=== PATIENT | female | born 2005 | race Caucasian/White ===

== ENCOUNTER 2024-10-25 06:29 | Emergency (ER) | payer SELFPAY ==
[2024-10-25 06:31] VITALS: BP 146/96; PULSE 122; RESP 18; TEMP 36.8; O2SAT 100
--- NOTE | 2024-10-25 08:15 | PC.NURSE ---
Pt ambulated to intake desk and states I am just gonna go, I don't want to be seen. Pt exited ED in NAD, steady gait.
--- OUTSIDE RECORDS SUMMARY | 2024-10-25 08:21 | XMS_ITS | Clinical Summary ---
Author Organization [facility] Administrative Offices Address [address] [place] [address] Care Team Providers Care Collection Administrator Name Role Phone Unavailable Primary Care Provider Unavailabl e Allergies No known active allergies Medications norethindrn a-e estradiol-iron (Loestrin Fe 08/10, 28-Day,) 1 mg-20 mcg (21)/75 mg (7) tablet Take 1 Tablet by mouth daily. 84 Tablet 3 11/23/2022 Active Active Problems No known active problems Family History Medical History Relation Name Comments Diabetes Father Heart Disease Father Diabetes Paternal Grandfather Relation Name Status Comments Father Paternal Grandfather Social History Tobacco Use Types Packs/Day Years Used Date Smoking Tobacco: Never Smokeless Tobacco: Never Tobacco Cessation:Counseling Given: Not Answered Alcohol Use Standard Drinks/Week Comments Yes 0 (1 standard drink = 0.6 oz pur e alcohol) Adolescent Education Answer Date Record ed Getting School Help Needed Not on file 02/20 Comments Unknown Sex and Gender Information Value Date Recorded Sex Assigned at Not on file 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 Gender Identity Not on file Sexual Orientation Not on file Last Filed Vital Signs Vital Sign Reading Time Taken Comments Blood Pressure 112/72 02/25/2023 10:29 AM CDT Pulse - - Temperature - - Respiratory Rate - - Oxygen Saturation - - Inhaled Oxygen Concentration - - Weight 101.6 kg (224 lb) 02/25/2023 10:29 AM CDT Height 170.2 cm (5' 7 ) 11/19/2022 2:42 PM CDT Body Mass Index 35.08 11/19/2022 2:42 PM CDT Plan of Treatment Health Maintenance Due Date Last Done Comments CHLAMYDIA SCREENING (ANNUAL) 11-24 YEARS 01/09/2015 HPV VACCINES (1 - 3-dose series) 01/09/2019 DTAP/TDAP/TD VACCINES (1 - Tdap) 01/09/2023 HEPATITIS B VACCINES (1 of 3 - 19+ 3-dose series) 12/21 INFLUENZA VACCINE (#1) 2024 Insurance [facility] OPEN ACCESS HMO
--- OUTSIDE RECORDS SUMMARY | 2024-10-25 08:21 | XMS_ITS | Encounter Summary ---
Author Organization [facility] Address [address] 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
--- OUTSIDE RECORDS SUMMARY | 2024-10-25 08:21 | XMS_ITS | Encounter Summary ---
Author Organization [employer] Address [address] [place] [address] Care Team Providers Care Dining Service Supervisor Name Role Phone Juju Ramachandran MD Primary Care Provider Encounter Details Date Type Department Care Team (Late st Contact Info) Description 08/11/2007 Outpatient Historical 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
--- OUTSIDE RECORDS SUMMARY | 2024-10-25 08:21 | XMS_ITS | Continuity of Care Document ---
Author Organization [employer] Address [address] [place] [address] Phone Care Team Providers Care Customer Services Manager Name Role Phone Clifford Florez MD Unavailable Unavailable Allergies, Adverse Reactions, Alerts Substance Reaction Status Criticality No Known Allergies Active No Inform ation Medications Medication Instructions Dosage Effective Dates (start - stop) Status Comments clotrimazole 1 % topical cream apply by topical route 2 times every day to the affected and surrounding areas of skin in the morning and evening 0.00 - Active Procedures Procedure Date IMMUN ADMIN (INC PERCUTANEOUS) SINGLE, F IRST INJ HEPATITIS B VACCINE, ADULT DOSEAGE, 3 DO SE SCHEDULE FOR INTRAMUSCULAR USE IMMUN ADMIN (INC PERCUTANEOUS) SINGLE, F IRST INJ HEPATITIS B VACCINE, ADULT DOSEAGE, 3 DO SE SCHEDULE FOR INTRAMUSCULAR USE IMMUN ADMIN (INC PERCUTANEOUS) EACH ADDT L HPV IM Types 6, 11, 16, 18, 31, 33, 45, 58 NONVALENT 9vHPV 3 DOSE SCHED IMMUN ADMIN (INC PERCUTANEOUS) SINGLE, F IRST INJ HEPATITIS B VACCINE, ADULT DOSEAGE, 3 DO SE SCHEDULE FOR INTRAMUSCULAR USE Brief Emotional/Behavioral A ssessment, With Scoring/Doct, Per [facility] Instrument Clin depression screen doc Brief Emotional/Behavioral A ssessment, With Scoring/Doct, Per St[facility] Instrument OFFICE [id number] BODY MASS INDEX DOCD SYST BP LT 130 MM HG DIAST BP < 80 MM HG PREVENTATIVE-EST: 18-39 OFFICE [id number] BODY MASS INDEX DOCD SYST BP LT 130 MM HG DIAST BP < 80 MM HG IMMUN ADMIN (INC PERCUTANEOUS) SINGLE, F IRST INJ HPV IM Types 6, 11, 16, 18, 31, 33, 45, 58 NONVALENT 9vHPV 3 DOSE SCHED ROUTINE VENIPUNCTURE COMPREHEN METABOLIC PANEL CMP LIPID PANEL ROUTINE VENIPUNCTURE SYST BP LT 130 MM HG DIAST BP 80-89 MM HG OFFICE [id number] BODY MASS INDEX DOCD SYST BP LT 130 MM HG DIAST BP 80-89 MM HG Brief Emotional/Behavioral A ssessment, With Scoring/Doct, Per [facility] Clin depression screen doc Brief Emotional/Behavioral A ssessment, With Scoring/Doct, Per Stnd[facility] Instrument Advance Directives Directive Yes / No Effective Date File Name No Information Encounters Encounter Description Practice Location Reason(s) For Visit Diagnoses Date Provider Providers Copied on Encounter [facility] [employer], [address], [place], [place], [id number] , [place] tel:[phone] [facility] Medicine No Information Aug-0 5 Vikki Horton. [address] [place], [place], [id number] , [place]. tel:[phone] [facility] [employer], [address], [place], [place], [id number] , [place] tel: [phone] [facility] Medicine Need for hepatitis B screening test b-0 5 Vikki Sarabia [address] [place], [place], [id number] , [place]. tel: [phone] [facility], [address], [place], [place], [address] , [place] tel: [phone] [facility] No Information 5 Arnel Tay. [address] [place] [address], [id number] , [place]. tel: [phone] Referring Provider: Jasvir Nugent, [facility] [place], [address] . tel:[phone] [facility], [address], [place], [place], [address] , [place] tel: [phone] [facility] No Information 4 Jaziel Palacios. [address] [place] [address], [id number] , . tel:[phone] Referring Provider: Clifford Florez, [address] [place] [address], [address] . tel:[phone] [facility], [address], [place], [place], [address] , [place] tel: [phone] [facility] Immunity status testing 4 Vikki Horton. [address] [place] [address], [id number] , [place]. tel:[phone] OFFICE [id number] MITED [facility], [address], [place], [place], [address] , [place] tel: [phone] [facility] .rash (chief complaint) vaccines (chief complaint) Need for vaccinationRashBody mass index [BMI] 35.0-35.9, adult 4 Jaziel Palacios. [address] [place] [address], [id number] , . tel:[phone] Referring Provider: Clifford Florez, [address] [place] [address], [address] . tel:[phone] PREVENTATIVE -EST: 18-39 [facility], [address], [place], [place], [id number] , tel: [phone] [facility] .wellness (chief complaint) Body mass index [BMI] pediatric, greater than or equal to 95th percentile for ageWellness examinationImmunity status testingNeed for vaccination 4 Jaziel Palacios. [address] [place] [address], [id number] , . tel:[phone] Referring Provider: Clifford Florez, [address] [place] [address], [address] . tel:[phone] OFFICE [id number]-ES -MED [facility], [address], [place], [place], [address] , tel: [phone] [facility] acute problem (chief complaint) Encounter for screening for cardiovascular disordersDiabetes mellitus screeningEncounter for immunizationBody mass index [BMI] pediatric, greater than or equal to 95th percentile for ageAcute urticariaCurrent mild episode of major depressive disorder, unspecified whether recurrentAmenorrhea 3 Vikki Horton. [address] [place] [address], [id number] , . [phone] Referring Provider: Clifford Florez, [address] [place] [address], [address] . tel:[phone] [facility], [address], [place], [place], [address] , tel: [phone] [facility] No Information 3 Vikki Horton. [address] [place] [address], [id number] , . tel:[phone] Family History Family Member Type Diagnosis Age At Onset No Information Immunizations Vaccine Date Status Comments Hep B, adult, 3 dose administered Source: New Immunization Record HPV (9-valent) refused Source: New I mmunization Record Hep B, adult, 3 dose administered Source: New Immunization Record HPV (9-valent) administered Source: New I mmunization Record Hep B, adult, 3 dose administered Source: New Immunization Record HPV (9-valent) administered Source: New I mmunization Record Payers Payer name Insurance type Covered libertarian ID Jenny washburn(s) [employer] OPEN ACCESS CI [id number] [employer] OPEN ACCESS CI [id number] [employer] OPEN ACCESS CI [id number] [employer] OPEN ACCESS CI [id number] [employer] OPEN ACCESS CI [id number] Social History Type Description Quantity Date Captured Comments Alcohol Use Details Unknown Caffeine Use Details Unknown Tobacco Use Status No Information Smoking Status No Information Sex Female Sexual Orientation Straight or heterosexual Gender Identity Female Chief Complaint And Reason For Visit No Information Reason For Referral Reason For Referral No Information Plan Of Treatment Date Type Action Status Goal Dietary management education , guidance, and counseling completed Goal Dietary management education , guidance, and counseling completed Goal Dietary management education , guidance, and counseling completed History Of Present Illness Encounter Date Complaint History Of Prese nt Illness .rash Pt here with con cerns of rash on R elbow for about 6 months. Started as small red bump and has since progressed to circular rash that is not itching, burning or painful. 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 no recent travel, new skin products. family members without symptoms. 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 Hep B titers were negative for immunity, needing Hep B series. She had first HPV vaccine about 1 mo ago. tolerated well without side effects. .wellness Pt presents for wellness exam. Plans to attend [employer] nursing program, needs verification of Hep B immunity. She feels well, denies any concerns. acute problem Appointment was made for cutting but patient states she is here for hives.Last started to get hives and thought it was due to stress because last year during graduation she had the same thing for 2 days and they went away with benadryl.This has been going on for a week now and not responding to the benadryl. No swelling of lips or tongue. No trouble swallowing, wheezing or shortness of breath. No new soaps, shampoos, detergents, fabric softeners, dryer sheets, etc...She states she had a one time history of cutting her breast a month ago. No pain or swelling. Saw a counselor once a few years ago but was a friend of grandmother and didn't feel comfortable. Has never been on medication. Decreased motivation and fatigue at times but is also working while going to classes. Some sadness and anhedonia. No suicidal or homicidal ideationsAlso mentioned that she has not had her menses since January. Negative HCG. States that this has happened in the past when stressed out. She does have a history of ovarian cyst. Functional Status Date Functional Assessmen t No Information Instructions Date Instruction Additional Infor chasidy Follow up for repeat hepatis vaccine in 4 months and final HPV vaccine at that time as well. Related to Need for vaccination Dietary management e ducation, guidance, and counseling Related to Body mass index (BMI) 35.0-35.9, adult You should return fo r 2nd HPV vaccine in 1-2 months then your last dose will be 6 months after that Related to Need for vaccination Dietary management e ducation, guidance, and counseling Related to Body mass index (BMI) pediatric, greater than or equal to 95th percentile for age Discussed the bioche mical nature and treatment options of depression at length including medical and non-medical options. Discussed exercise and counseling.. She is going to try counseling. She is on the fence about medication but leaning towards it. Given a provisional RX for paroxetine 10 mg qd and is going to think a bit more about starting therapy. Related to Current mild episode of major depressive disorder, unspecified whether recurrent check TSH, FSH and L HShe states she had this once before when stressed out but also possible PCOs (history of ovarian cyst, obesity and amenorrhea). May be a candidate for trial of metformin Related to Amenorrhea discussed keeping sk in cool.Zyrtec 10 mg bidPepcid 20 mg qdProvisional RX for prednisone 50 mg qd x 5 Related to Acute urticaria Screen for diabetes. Check CMP R elated to Diabetes mellitus screening Screen for cardiovas cular/lipid disorder. Check lipid profile. Related to Encounter for screening for cardiovascular disorders need copy of shot records Relate d to Encounter for immunization Disease process Dietary management e ducation, guidance, and counseling Related to Body mass index (BMI) pediatric, greater than or equal to 95th percentile for age Assessments Type Assessment Date No Information Patient Care Teams Name Effective Dates (start - stop) Status Members No Information
--- OUTSIDE RECORDS SUMMARY | 2024-10-25 08:21 | XMS_ITS | Encounter Summary ---
Author Organization [facility] Address [address] [place] [address] Care Team Providers Care Diesel Powerplant Supervisor Name Role Phone Juju Ramachandran MD Primary Care Provider [phone] Encounter Details Date Type Department Care Team (Late st Contact Info) Description 2004 Outpatient Historical [facility] Hearing [facility] 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
== END 2024-10-25 09:33 | disposition left against medical advice (07) ==
LOC: ANHED 08:20
DX: H92.03 Otalgia, bilateral (principal)
CPT/HCPCS: 99199

== ENCOUNTER 2024-10-25 08:14 | Emergency (ER) | payer OTHER, SELFPAY ==
[2024-10-25 08:28] VITALS: BP 127/83; PULSE 108; RESP 16; TEMP 36.6; O2SAT 100
--- NOTE | 2024-10-25 08:32 | ED_ITS ---
HPI - Ear Problem General Chief complaint: Ear Stated complaint: EARACHE Time Seen by Provider: 10/25/24 08:32 Source: patient Mode of arrival: ambulatory Limitations: no limitations History of Present Illness HPI Narrative: 19 yo F presents with c/o bilateral ear pain for 2 days. Has had nasal congestion, sinus pressure for about 1 wk. Taking OTC sudafed with no relief. All systems reviewed and negative except as noted above. Related Data Allergies Allergy/AdvReac Type Severity Reaction Status Date / Time No Known Allergies Allergy Verified 10/25/24 08:27 Review of Systems Review of Systems: CONSTITUTIONAL: Denies fever, chills, or sweats. EYES: Denies visual changes, redness, or discharge. ENT: Reports rhinorrhea, congestion, sinus pressure. Denies sore throat. Reports bilateral ear pain CARDIOVASCULAR: Denies chest pain, palpitations, or edema. RESPIRATORY: Denies cough or dyspnea. GASTROINTESTINAL: Denies abdominal pain, nausea, vomiting, or diarrhea. GENITOURINARY: Denies dysuria or hematuria. SKIN: Denies rash or itching. MUSCULOSKELETAL: Denies back pain, joint pain, or myalgia. NEUROLOGIC: Denies headache, numbness, or weakness. PSYCHIATRIC: Denies anxiety or depression. All other systems reviewed are negative, except as documented in HPI. PMFSH Comments At time of signature, agree with nursing past medical, surgical, social and family history. There is no relevant family history pertinent to the presenting complaint. Exam Narrative: GENERAL: This is a well-nourished, well-developed patient, in no apparent distress. HEAD: normocephalic, atraumatic. EYES: PERRL. Sclera clear/white. Vision is grossly intact. EARS: External ears normal, auditory canals clear and without drainage, fluid bilateral TMs, dull light reflex, mild erythema. No perforation bilaterally. Hearing grossly intact. NOSE: External nose normal with clear nasal drainage THROAT: Mucous membranes moist, mild erythema with postnasal drainage NECK: Neck supple, non-tender without lymphadenopathy, masses or thyromegaly. CARDIOVASCULAR: Regular rate and rhythm without murmurs, gallops, or rubs. RESPIRATORY: Clear to auscultation. Breath sounds equal bilaterally. No wheezes, rales, or rhonchi. SKIN: warm, Dry, intact with no suspicious lesions or rash, good texture and t urgor. NEURO: awake, alert, and oriented to person, place and time. There were no obvious focal neurologic abnormalities. EXTREMITIES: No joint tenderness, effusion, or edema noted. Course Course Level of Care: Express Care Visit Vital Signs Vital signs: Vital Signs Temperature 36.6 C 10/25/24 08:28 Pulse Rate 108 H 10/25/24 08:28 Respiratory Rate 16 10/25/24 08:28 Blood Pressure 127/83 10/25/24 08:28 Pulse Oximetry 100 10/25/24 08:28 Temperature 36.6 C 10/25/24 08:28 Pulse Rate 108 H 10/25/24 08:28 Respiratory Rate 16 10/25/24 08:28 Blood Pressure 127/83 10/25/24 08:28 Pulse Oximetry 100 10/25/24 08:28 Reviewed Medical Decision Making MDM Narrative Medical decision making narrative: Will treat fluid bilateral TMs with antibiotic. Patient is well-appearing, nontoxic. Please be advised this is a medical document. It is intended for [id number] communication. It is written in medical language and may contain unfamiliar abbreviations or verbiage. Medical documents are intended to carry relevant information, facts as evident, and the clinical opinion of the practitioner at the time of the encounter. This report may have been done utilizing a voice recognition system. Attempts have been made to correct errors. However, there may be uncorrected grammatical, spelling, and recognition errors present. The file time of this note does not necessarily represent the time of service. Vital Signs Vital Signs: Vital Signs Temperature 36.6 C 10/25/24 08:28 Pulse Rate 108 H 10/25/24 08:28 Respiratory Rate 16 10/25/24 08:28 Blood Pressure 127/83 10/25/24 08:28 Pulse Oximetry 100 10/25/24 08:28 Temperature 36.6 C 10/25/24 08:28 Pulse Rate 108 H 10/25/24 08:28 Respiratory Rate 16 10/25/24 08:28 Blood Pressure 127/83 10/25/24 08:28 Pulse Oximetry 100 10/25/24 08:28 Discharge Plan Discharge Clinical Impression: Acute serous otitis media of both ears Qualifiers: Recurrence: not specified as recurrent Qualified Code(s): H65.03 - Acute serous otitis media, bilateral Patient Disposition: Home, Self-Care Condition: Stable Instructions: Antibiotic Form, Fluid In The Ear (Serous Otitis Media) (ED) Additional Instructions: Take medications as prescribed. Take ibuprofen or Tylenol every 6-8 hours as needed for pain. Follow-up with your primary care physician if symptoms are not improving. Patient Language: Bengali Prescriptions: New amoxicillin 875 mg tablet 875 mg PO Q12H 10 Days Qty: 20 0RF fluticasone propionate [Flonase Allergy Relief] 50 mcg/actuation spray,suspension 1 spray intranasal BID Qty: 16 0RF Rx Instructions: administer into each nostril Claritin-D 12 Hour 5-120 mg tablet extended release 12 hr 1 tablet PO Q12H PRN (Reason: sinus symptoms) Qty: 20 0RF Follow-up/Referrals: PHYSICIAN,CHILD PSYCHIATRIST [Primary Care Provider] - Stand Alone Forms: Work/School Release IP Time of Disposition: 08:40
== END 2024-10-25 08:49 | disposition home or self-care (01) ==
PROVIDERS: Emergency Provider Nurse Practitioner Family
DX: H65.03 Acute serous otitis media, bilateral (principal)
CPT/HCPCS: 99203; G0463

== ENCOUNTER 2025-03-06 11:54 | Emergency (ER) | payer OTHER, SELFPAY ==
[2025-03-06 12:14] VITALS: BP 135/84; PULSE 104; RESP 18; TEMP 36.8; O2SAT 100
--- NOTE | 2025-03-06 12:39 | ED_ITS ---
HPI - General Adult General Chief complaint: Unspecified Stated complaint: SORE THROAT Time Seen by Provider: 03/06/25 12:39 Source: patient Mode of arrival: ambulatory Limitations: no limitations History of Present Illness HPI narrative: 20 yo F presents with c/o nausea. has been nauseated since taking 40mg paxil. discussed this with her PCP who recently decreased paxil to 30mg. Continues to have nausea. Scheduled appt with Pcp for Saturday but needs to drive 2 hrs home today for appt. Called into work and needs noted. Denies SI/HI. All systems reviewed and negative except as noted above. Related Data Allergies Allergy/AdvReac Type Severity Reaction Status Date / Time No Known Allergies Allergy Verified 03/06/25 12:12 PMF Comments At time of signature, agree with nursing past medical, surgical, social and family history. There is no relevant family history pertinent to the presenting complaint. Exam Narrative: GENERAL: This is a well-nourished, well-developed patient, in no apparent distress. HEAD: normocephalic, atraumatic. EYES: PERRL. Sclera clear/white. Vision is grossly intact. EARS: External ears normal NOSE: External nose normal NECK: Neck supple, non-tender without lymphadenopathy, masses or thyromegaly. CARDIOVASCULAR: Regular rate and rhythm without murmurs, gallops, or rubs. RESPIRATORY: Clear to auscultation. Breath sounds equal bilaterally. No wheezes, rales, or rhonchi. SKIN: warm, Dry, intact with no suspicious lesions or rash, good texture and turgor. NEURO: awake, alert, and oriented to person, place and time. There were no obvio us focal neurologic abnormalities. EXTREMITIES: No joint tenderness, effusion, or edema noted. Course Course Level of Care: Express Care Visit Vital Signs Vital signs: Vital Signs Temperature 36.8 C 03/06/25 12:14 Pulse Rate 104 H 03/06/25 12:14 Respiratory Rate 18 03/06/25 12:14 Blood Pressure 135/84 03/06/25 12:14 Pulse Oximetry 100 03/06/25 12:14 Temperature 36.8 C 03/06/25 12:14 Pulse Rate 104 H 03/06/25 12:14 Respiratory Rate 18 03/06/25 12:14 Blood Pressure 135/84 03/06/25 12:14 Pulse Oximetry 100 03/06/25 12:14 Reviewed Medical Decision Making MDM Narrative Medical decision making narrative: Patient is well-appearing. Denies SI HI. Has appointment with her primary care physician to discuss medication dose changes. Needs work note. Vital Signs Vital Signs: Vital Signs Temperature 36.8 C 03/06/25 12:14 Pulse Rate 104 H 03/06/25 12:14 Respiratory Rate 18 03/06/25 12:14 Blood Pressure 135/84 03/06/25 12:14 Pulse Oximetry 100 03/06/25 12:14 Temperature 36.8 C 03/06/25 12:14 Pulse Rate 104 H 03/06/25 12:14 Respiratory Rate 18 03/06/25 12:14 Blood Pressure 135/84 03/06/25 12:14 Pulse Oximetry 100 03/06/25 12:14 Discharge Plan Discharge Clinical Impression: Nausea Patient Disposition: Home Condition: Stable Instructions: General Patient Instructions Additional Instructions: Follow-up with your primary care physician at scheduled appointment. Patient Language: Kinyarwanda Follow-up/Referrals: PHYSICIAN,TAPE CONTROL SKIN OR [facility] M[employer] OPERATOR [Primary Care Provider] - Stand Alone Forms: Work/School Release IP Time of Disposition: 12:46
== END 2025-03-06 12:48 | disposition home or self-care (01) ==
PROVIDERS: Emergency Provider Nurse Practitioner Family
DX: R11.0 Nausea (principal)
CPT/HCPCS: 99211; 99213; G0463